=== PATIENT | male | born 1975 | race Caucasian/White ===

== ENCOUNTER 2019-11-18 17:50 | Emergency (ER) | payer MEDICAID, OTHER ==
[~2019-11-18] VITALS: Ht 170.2 cm; Wt 116.4 kg
[~2019-11-18 17:50] MED LIST: DENAVIR; LEVA500T; OXYC-141 PO; PERCOCET PO; VICO5TAB OR; [UNRECOGNIZED DRUG - REMARK]
[2019-11-18] MEDS ORDERED: NORCO, ANEXSIA 5/325MG TABLET (HYDROcodone/ACETAMINOPHEN) PO ONE (18:30)
[2019-11-18] MEDS ORDERED: LIDOCAINE 4% CREAM 5GM (LMX4) TOP ONE (18:30)
--- NOTE | 2019-11-18 19:12 | REPVR ---
PROCEDURE INFORMATION: Exam: CT Chest Without Contrast Exam date and time: 11/18/2019 6:41 PM Age: 44 years old Clinical indication: Injury or trauma; Fall; Initial encounter; Blunt trauma (contusions or hematomas); Additional info: Blunt trauma to sternum, PT tender + lower ribs TECHNIQUE: Imaging protocol: Computed tomography of the chest without contrast. 3D rendering: MIP and/or 3D reconstructed images were created by the technologist. Radiation optimization: All CT scans at this facility use at least one of these dose optimization techniques: automated exposure control; mA and/or kV adjustment per patient size (includes targeted exams where dose is matched to clinical indication); or iterative reconstruction. COMPARISON: No relevant prior studies available. FINDINGS: Lungs: No consolidation. Pleural space: The lungs appear clear with no evidence of pneumothorax. There is no evidence of a pleural effusion. Heart: Unremarkable. No cardiomegaly. No pericardial effusion. Aorta: Normal in size. Lymph nodes: Unremarkable. No enlarged lymph nodes. Spleen: There is a small calcified granuloma of the spleen. Kidneys and ureters: There is a small calcified stone left kidney/nonobstructive. Bones/joints: There is no evidence of a sternal fracture, however, there is mild soft tissue swelling anterior to the sternum. There is no evidence of a rib fracture. There is anterior osteophyte formation lower thoracic spine. IMPRESSION: No evidence of fracture. Electronically signed by: Tolu Urban On 11/18/2019 19:11:41 PM
[2019-11-18] MEDS ORDERED: ASPE16CR TOP (19:29)
[2019-11-18 19:40] VITALS: BP 162/77
== END 2019-11-18 19:46 | disposition home or self-care (01) ==
LOC: M ED 17:50
DX: S20.219A Contusion of unspecified front wall of thorax, initial encounter (principal); W01.198A Fall on same level from slipping, tripping and stumbling with subsequent striking against other object, initial encounter; Y92.018 Other place in single-family (private) house as the place of occurrence of the external cause; F17.210 Nicotine dependence, cigarettes, uncomplicated

== ENCOUNTER → 2020-06-11 | Outpatient (CLI) | payer OTHER ==
[~2020-06-11] MED LIST changes: +ASPE16CR TOP
--- NOTE | 2020-06-11 11:43 | REP ---
INDICATION: PAIN COMPARISON: None. TECHNIQUE: AP, lateral, bilateral oblique views of the left elbow. FINDINGS: No acute fracture or dislocation is appreciated. Joint spaces and surrounding soft tissues appear normal. Lateral view demonstrates normal positioning to the anterior and posterior fat pads without evidence for effusion/hemarthrosis. No subcutaneous emphysema or foreign body identified. IMPRESSION: Normal age-appropriate left elbow radiographs. <Electronically signed by Ant Rm > 06/11/20 [id number]
--- NOTE | 2020-06-11 12:03 | REP ---
INDICATION: PAIN COMPARISON: None. TECHNIQUE: AP weight-bearing view of the right and left knees. FINDINGS: Mildly increased sclerosis along the tibial plateau and minimal tibiofemoral joint space narrowing with subtle cortical irregularities are appreciated primarily involving the right knee.. IMPRESSION: Mild arthritic changes (right greater than left). <Electronically signed by Ant Rm > 06/11/20 [id number]
[2020-06-11 13:58] LABS: HEMATOCRIT 45.3 % (42.0-52.0); HEMOGLOBIN 15.1 g/dl (13.5-17.5); MEAN CORPUSCULAR HEMOGLOBIN 29.9 pg (27.0-33.0); MEAN CORPUSCULAR HGB CONC 33.3 g/dl (32.0-36.5); MEAN CORPUSCULAR VOLUME 89.7 fl (80.0-96.0); PLATELET COUNT, AUTOMATED 258 10^3/uL (150-450); RED BLOOD COUNT 5.05 10^6/uL (4.30-6.10); WHITE BLOOD COUNT 7.4 10^3/uL (4.0-10.0)
[2020-06-11 14:31] LABS: ALBUMIN 3.9 GM/DL (3.2-5.2); ALT/SGPT 23 U/L (12-78); BILIRUBIN,TOTAL 0.4 MG/DL (0.2-1.0); BLOOD UREA NITROGEN 21 MG/DL (7-18); CALCIUM LEVEL 8.7 MG/DL (8.5-10.1); CARBON DIOXIDE LEVEL 30 MEQ/L (21-32); CHLORIDE LEVEL 102 MEQ/L (98-107); CHOLESTEROL LEVEL 168 MG/DL (<200); CREATININE FOR GFR 1.33 MG/DL (0.70-1.30); GLOMERULAR FILTRATION RATE > 60.0 (>60); GLUCOSE, FASTING 101 MG/DL (70-100); HDL CHOLESTEROL 33 MG/DL (>40); LDL CHOLESTEROL 114 MG/DL (<100); NON-HDL-C 135 MG/DL; POTASSIUM SERUM 3.8 MEQ/L (3.5-5.1); SODIUM LEVEL 137 MEQ/L (136-145); TOTAL PROTEIN 7.7 GM/DL (6.4-8.2); TRIGLYCERIDES LEVEL 105 MG/DL (<150)
[2020-06-11 15:18] LABS: HEMOGLOBIN A1c 4.9 %
== END ==
LOC: M WUC 11:06
PROVIDERS: ATTEND Student in an Organized Health Care Education/Training Program
DX: M17.0 Bilateral primary osteoarthritis of knee (principal); Z79.1 Long term (current) use of non-steroidal anti-inflammatories (NSAID); I10 Essential (primary) hypertension

== ENCOUNTER 2020-06-24 10:37 | Emergency (ER) | payer OTHER ==
[~2020-06-24] VITALS: Ht 170.2 cm; Wt 111.8 kg
[2020-06-24 10:38] VITALS: BP 155/77
--- NOTE | 2020-06-24 11:21 | REP ---
INDICATION: fall injury COMPARISON: None. TECHNIQUE: AP, lateral, bilateral oblique views right wrist. FINDINGS: The carpal bones, surrounding osseous structures, soft tissues, and joint spaces are normal. There is no evidence for acute fracture or dislocation. No subcutaneous emphysema or radiodense foreign body. IMPRESSION: Normal wrist series. No acute fracture or dislocation. <Electronically signed by Ant Rm > 06/24/20 111
--- NOTE | 2020-06-24 11:22 | REP ---
INDICATION: fall injury COMPARISON: None. TECHNIQUE: AP, lateral, bilateral oblique views of the right elbow elbow. FINDINGS: No acute fracture or dislocation is appreciated. Joint spaces and surrounding soft tissues appear normal. Lateral view demonstrates normal positioning to the anterior and posterior fat pads without evidence for effusion/hemarthrosis. No subcutaneous emphysema or foreign body identified. IMPRESSION: Normal acute fracture or dislocation appreciated. <Electronically signed by Ant Rm > 06/24/20 [id number]
--- NOTE | 2020-06-24 11:23 | REP ---
INDICATION: fall injury COMPARISON: None. TECHNIQUE: AP, lateral, views of the right humerus. FINDINGS: Glenohumeral and elbow joints appear normal for age. There is no evidence for acute fracture or dislocation. IMPRESSION: . No acute fracture or dislocation. <Electronically signed by Ant Rm > 06/24/20 1114
--- NOTE | 2020-06-24 11:24 | REP ---
INDICATION: fall injury COMPARISON: None. TECHNIQUE: Two views of the right clavicle FINDINGS: Degenerative changes. No evidence for acute fracture or dislocation. IMPRESSION: No evidence for acute fracture or dislocation. <Electronically signed by Ant Rm > 06/24/20 [id number]
[2020-06-24] MEDS ORDERED: NORCO, ANEXSIA 5/325MG TABLET (HYDROcodone/ACETAMINOPHEN) PO ONE (11:30)
== END 2020-06-24 11:58 | disposition home or self-care (01) ==
LOC: M ED 10:37
DX: M25.511 Pain in right shoulder (principal); W00.9XXA Unspecified fall due to ice and snow, initial encounter; Y92.099 Unspecified place in other non-institutional residence as the place of occurrence of the external cause; Y93.9 Activity, unspecified; Y99.9 Unspecified external cause status; I10 Essential (primary) hypertension; F12.10 Cannabis abuse, uncomplicated; Z87.442 Personal history of urinary calculi

== ENCOUNTER 2020-10-30 21:52 | Emergency (ER) | payer OTHER ==
[~2020-10-30] VITALS: Ht 170.2 cm; Wt 113.8 kg
[2020-10-31] MEDS ORDERED: BOOSTRIX/ADACEL VACCINE (DIPHTH/PERTUSS/ACELL/TETANUS) 0.5ML SYR IM ONE (00:25)
[2020-10-31] MEDS ORDERED: LIDOCAINE 1% MDV 20ML VIAL SC ONE (00:25)
[2020-10-31] MEDS ORDERED: NEOSPORIN OINT 0.9 GM PKT TOP ONE (00:25)
[2020-10-31 00:57] VITALS: BP 157/91
== END 2020-10-31 01:04 | disposition home or self-care (01) ==
LOC: M ED 21:52
DX: S81.811A Laceration without foreign body, right lower leg, initial encounter (principal); W22.8XXA Striking against or struck by other objects, initial encounter; Y92.009 Unspecified place in unspecified non-institutional (private) residence as the place of occurrence of the external cause; Y93.89 Activity, other specified; Y99.9 Unspecified external cause status

== ENCOUNTER 2023-04-22 16:43 | Emergency (ER) | payer OTHER ==
[~2023-04-22] VITALS: Ht 170.2 cm; Wt 103.7 kg
[~2023-04-22 16:43] MED LIST changes: -ASPE16CR TOP; +LIDO76.52 TOP
[2023-04-22 16:44] VITALS: BP 188/91; TEMP 97.5; O2SAT 98
[2023-04-22] MEDS ORDERED: HYDR12CA (16:58)
[2023-04-22] MEDS ORDERED: ONDANSETRON 4MG ORAL DISINTEGRATING TAB PO ONE (17:20)
[2023-04-22] MEDS ORDERED: METH-1165 PO (18:30)
[2023-04-22] MEDS ORDERED: ONDA4TAB6 PO (18:30)
[2023-04-22] MEDS ORDERED: KETO10TAB PO (18:30)
[2023-04-22] MEDS ORDERED: HYDR12.55 PO (18:30)
== END 2023-04-22 18:45 | disposition home or self-care (01) ==
LOC: M ED 16:43
DX: S13.4XXA Sprain of ligaments of cervical spine, initial encounter (principal); R51.9 Headache, unspecified; M54.2 Cervicalgia; I10 Essential (primary) hypertension; Z76.0 Encounter for issue of repeat prescription; V49.50XA Passenger injured in collision with unspecified motor vehicles in traffic accident, initial encounter; Z79.83 Long term (current) use of bisphosphonates; Z79.84 Long term (current) use of oral hypoglycemic drugs; Z79.899 Other long term (current) drug therapy